=== PATIENT | male | born 1970 | race Caucasian/White ===

== ENCOUNTER → 2022-11-11 | Day surgery (SDC) | payer OTHER ==
[~2022-11-11] MED LIST: ALBUTEROL SULFATE HFA 8GM INHALATION AEROSOL INH ONE; ALENDRONATE SOD70 MG PO; ARAVA20 MG PO; BUSPIRONE HCL10 MG PO; DOCUSATE SODIU100 MG PO; HYOSCYAMINE SULFATE 0.5 MG/ML INJ ONE; IBUPROFEN200 MG PO; KETAMINE HCL INJ 50 MG/ML 10 ML VIAL ONE; LIDOCAINE HCL 2% LOCAL INJ 5 ML SDV VIAL INJ ONE; METOCLOPRAMIDE HCL 10 MG/2ML VIAL ONE; MIDAZOLAM HCL 2 MG/2 ML VIAL ONE; MIRTAZAPINE45 MG PO; OMEPRAZOLE20 MG PO; PHENYLEPHRINE HCL 1% 10 MG/ML VIAL ONE; PROPOFOL IV EMULSION 10 MG/ML 20 ML VIAL ONE
[2022-11-11 09:40] VITALS: BP 132/76
== END | disposition home or self-care (01) ==
LOC: OR 06:44
PROVIDERS: ATTEND Internal Medicine Gastroenterology
DX: K59.09 Other constipation (principal); K63.5 Polyp of colon; K29.50 Unspecified chronic gastritis without bleeding; K63.89 Other specified diseases of intestine; K20.90 Esophagitis, unspecified without bleeding; K44.9 Diaphragmatic hernia without obstruction or gangrene; K31.89 Other diseases of stomach and duodenum; K21.9 Gastro-esophageal reflux disease without esophagitis; R63.0 Anorexia; R63.4 Abnormal weight loss; K62.5 Hemorrhage of anus and rectum; K64.8 Other hemorrhoids; Z71.3 Dietary counseling and surveillance; Z71.89 Other specified counseling; J44.9 Chronic obstructive pulmonary disease, unspecified; F41.9 Anxiety disorder, unspecified; F17.210 Nicotine dependence, cigarettes, uncomplicated; Z71.6 Tobacco abuse counseling; Z01.810 Encounter for preprocedural cardiovascular examination; Z79.899 Other long term (current) drug therapy; Z85.828 Personal history of other malignant neoplasm of skin; Z86.16 Personal history of COVID-19; Z80.0 Family history of malignant neoplasm of digestive organs
CPT/HCPCS: 43239; 45385; 93005; C9113; J1980; J2001; J2250; J2370; J2704; J2765; 45378